=== PATIENT | male | born 1945 | race Two or more races ===

== ENCOUNTER 2019-05-10 01:36 | Inpatient (IN) | payer OTHER ==
[~2019-05-10] VITALS: Ht 177.8 cm; Wt 103.9 kg
--- NOTE | 2019-05-10 01:40 | NUR ---
PT BIB EMS C/O L HIP L THIGH PAIN S/P GLF. PT NOT KOREAN SPEAKING. NO KO PER FAMILY REPORT. DENIES DIZZINESS. PT HAS HAD GLF'S IN THE PAST. PT ON MONITOR IN BED 3 WITH FAMILY AT BEDSIDE. WILL CONTINUE TO MONITOR.
--- NOTE | 2019-05-10 01:56 | NUR ---
BLOOD DRAWN AND GIVEN TO LAB
[2019-05-10 02:04] LABS: CALCIUM, SERUM 9.8 mg/dL (8.5-10.1); CARBON DIOXIDE 30 mmol/L (21-32); CHLORIDE 106 mmol/L (98-107); CREATININE 1.6 mg/dL (0.6-1.3); GLUCOSE 102 mg/dL (74-106); POTASSIUM 4.3 mmol/L (3.5-5.1); SODIUM SERUM 140 mmol/L (136-145); UREA NITROGEN, BLOOD 28 mg/dL (7-18)
[2019-05-10] MEDS ORDERED: IV NS 0.9% 250 ML IV ONE (02:16)
[2019-05-10] MEDS ORDERED: IOHEXOL-300 100 ML VIAL IV ONE (02:16)
[2019-05-10] MEDS ORDERED: CT SWABBABLE VALVE TRANS SET 1 EA INFUS.SET MC ONE (02:16)
[2019-05-10] MEDS ORDERED: IV NS 0.9% 1,000 ML IV PRN (02:30)
[2019-05-10] MEDS ORDERED: MORPHINE SULFATE INJ 2 MG/ML DISP.SYRIN IV ONE (03:00)
--- NOTE | 2019-05-10 03:01 | NUR ---
PT TAKEN TO RADIOLOGY [facility]IA [facility]
--- NOTE | 2019-05-10 03:22 | NUR ---
PT [facility] [place] [facility]. PT TOLERATED WELL.
[2019-05-10] MEDS ORDERED: ONDANSETRON HCL/PF - ER 4 MG/2 ML VIAL IV ONE (03:30)
[2019-05-10] MEDS ORDERED: MORPHINE SULFATE INJ 4 MG/ML DISP.SYRIN ONE ×2 (03:34→05:21)
[2019-05-10] MEDS ORDERED: ONDANSETRON HCL/PF 4 MG/2 ML VIAL ONE (03:34)
--- NOTE | 2019-05-10 04:14 | NUR ---
Patient is resting comfortably in bed with eyes closed. Easily aroused. VSS. FAMILY AT BEDSIDE.
--- NOTE | 2019-05-10 04:56 | NUR ---
REPORT GIVEN TO CARA KAUFFMAN FOR DARLEEN
[2019-05-10] MEDS ORDERED: MORPHINE SULFATE INJ 4 MG/ML DISP.SYRIN IV PRN (05:30)
--- NOTE | 2019-05-10 05:42 | NUR ---
RECEIVED CALL FROM PATIENTS INSURANCE REQUESTING A MEDICAL REPORT. FAXED REPORT TO [phone]
--- NOTE | 2019-05-10 05:47 | NUR ---
MS ADMISSION NOTES RECEIVED PATIENT FROM ER VIA GURNEY ACCOMPANIED BY 1 ER STAFF. ADMITTED TO MS 308-1 DUE TO S/P FALL. TRANSFERRED TO BED WITH 4 PERSONS ASSIST. ADMISSION ROUTINE DONE. PATIENT'S BELONGINGS INVENTORY COMPLETED BY THE ASSIGNED SKIMMER SCOOP OPERATOR. INITIAL SKIN ASSESSMENT DONE. PAGED ATTENDING PHYSICIAN, AWAITING FOR ORDERS AT THIS TIME. KEPT ON BED CLEAN, DRY AND COMFORTABLE. CALL LIGHT AT BEDSIDE. WILL CONTINUE TO MONITOR ACCORDINGLY.
[2019-05-10 06:45] LABS: HEMATOCRIT 40 % (39-51); HEMOGLOBIN 13.6 g/dL (13.5-17.5); MEAN CORPUSCULAR HGB CONC 34 g/dl (31.0-36.0); MEAN CORPUSCULAR VOLUME 94 fL (80-96); NEUTROPHILS % (AUTO) 76.2 % (43.0-81.0); PLATELET COUNT (AUTO) 152 /CMM (150-450); RED BLOOD CELL COUNT(AUTO) 4.25 MIL/uL (4.5-6.0); WHITE BLOOD COUNT (AUTO) 9.1 K/uL (4.3-11.0)
[2019-05-10 06:46] LABS: BASOPHILS % (AUTO) 0.3 % (0.0-2.0); EOSINOPHILS % (AUTO) 0.5 % (0.0-6.0); LYMPHOCYTES # (AUTO) 1.6 /CMM (0.8-4.8); LYMPHOCYTES % (AUTO) 17.6 % (20.0-44.0); MONOCYTES # (AUTO) 0.5 /CMM (0.1-1.30); MONOCYTES % (AUTO) 5.4 % (2.0-12.0); NEUTROPHILS # (AUTO) 6.9 /CMM (1.8-8.9)
[2019-05-10] MEDS ORDERED: ONDANSETRON HCL/PF 4 MG/2 ML VIAL IVP PRN (07:00)
[2019-05-10] MEDS ORDERED: ACETAMINOPHEN 650 MG/SUPP.RECT RC PRN (07:00)
[2019-05-10] MEDS ORDERED: Z GUARD REMEDY 2 OZ OINT TP PRN (07:00)
[2019-05-10] MEDS ORDERED: IV D5/0.45 NACL 1,000 ML IV PRN (07:00)
--- NOTE | 2019-05-10 07:26 | NUR ---
RN NOTES PATIENT ON TELE PER MD ORDERED, READS SINUS WITH INTERTED T WAVE, SAFETY MEASURES IN PLACE, AT BEDSIDE BOTH UGANDAN SPEAKING, MAY CONTACT SON BENY, ENDORSE TO AM NURSE FOR CONTINUITY OF CARE.
--- NOTE | 2019-05-10 07:37 | NUR ---
MS RN OPENING NOTES RECEIVED PT LAYING IN BED W/ HOB ELEVATED. PT IS A/O X4, AFEBRILE. AT BEDSIDE. RESPIRATIONS ARE EVEN AND UNLABORED, NOT IN ANY ACUTE DISTRESS NOTED. PT STATES HE HAS "SMALL PAIN" TO LEFT HIP, HOWEVER NO FACIAL GRIMACING OR MOANING NOTED. NO SOB, N/V. IV SITE TO RAC 18G, NO INFILTRATION NOTED. DRESSING KEPT CLEAN AND DRY. SAFETY MEASURES ARE IN PLACE. INSTRUCTED PT TO USE CALL LIGHT WHEN ASSISTANCE IS NEEDED, CALL LIGHT IS LEFT WITHIN REACH. WILL MONITOR THROUGHOUT SHIFT FOR CONTINUITY OF CARE.
[2019-05-10 08:00] VITALS: BP 127/69
--- NOTE | 2019-05-10 08:00 | NUR ---
MS RN NOTES-- PT WAS SEEN AND EXAMINED BY DR. NEGRO W/ ORDERS TO D/C JAROD.
[2019-05-10] MEDS ORDERED: BLOOD PRESSURE PO (08:07)
[2019-05-10] MEDS ORDERED: ATOR20TA PO (08:07)
[2019-05-10] MEDS ORDERED: ZOLP5TAB2 PO (08:07)
[2019-05-10] MEDS ORDERED: ASPI-605 PO (08:07)
[2019-05-10 08:11] LABS: THYROID STIMULATING HORMONE 4.181 uIU/mL (0.358-3.74)
--- NOTE | 2019-05-10 08:30 | NUR ---
MS RN NOTES-- PT WAS SEEN AND EXAMINED BY ERASTO MORALEZ.
[2019-05-10] MEDS ORDERED: CLONIDINE HCL 0.1 MG TABLET PO PRN (09:00)
[2019-05-10 09:20] LABS: ALANINE AMINOTRANSFERASE 33 U/L (12-78); ALBUMIN 3.5 g/dL (3.4-5.0); ALKALINE PHOSPHATASE 119 U/L (46-116); ASPARTATE AMINOTRANSFERASE 27 U/L (15-37); BILIRUBIN,DIRECT 0.1 mg/dL (0.0-0.2); BILIRUBIN,TOTAL 0.7 mg/dL (0.2-1.0); TOTAL PROTEIN, SERUM 7.1 g/dL (6.4-8.2)
[2019-05-10] MEDS: PANTOPRAZOLE 40 MG VIAL IV SCH (09:28)
[2019-05-10] MEDS: AMLODIPINE BESYLATE 10 MG TABLET PO SCH (09:28)
[2019-05-10] MEDS: METOPROLOL TARTRATE 25 MG TABLET PO SCH ×2 (09:28→21:03)
[2019-05-10] MEDS: MORPHINE SULFATE INJ 2 MG/ML DISP.SYRIN IV PRN ×3 (09:37→19:48)
--- NOTE | 2019-05-10 10:00 | NUR ---
MS RN NOTES-- PT WAS SEEN AND EXAMINED BY LOLLY WINSLOW AND DR. WATT.
[2019-05-10] MEDS: IV NS 0.9% 1,000 ML IV PRN ×2 (10:15→18:29)
--- NOTE | 2019-05-10 12:10 | NUR ---
MS RN NOTES-- PT WAS SEEN AND EXAMINED BY DR. SONJA Graf/ NANDINI FOR CLEAR FOR SURGERY.
--- NOTE | 2019-05-10 12:23 | NUR ---
MS RN NOTES-- RECEIVED VERBAL ORDER FROM LOLLY WINSLOW FOR LEFT HIP XRAY 2 VIEWS. ORDER READ BACK AND VERIFIED, NOTED AND CARRIED OUT.
[2019-05-10 15:28] LABS: APPEARANCE,URINE CLEAR (CLEAR); BILIRUBIN,URINE NEGATIVE (NEGATIVE); BLOOD, URINE TRACE-INTA Ery/uL (NEGATIVE); COLOR,URINE YELLOW (YELLOW); KETONES,URINE NEGATIVE (NEGATIVE); LEUKOCYTE ESTERASE ,URINE NEGATIVE (NEGATIVE); NITRITE, URINE NEGATIVE (NEGATIVE); PH,URINE 6.5 (5.0-8.0); PROTEIN,URINE TRACE mg/dl (NEGATIVE); UGLUCOSE NEGATIVE (NEGATIVE); UROBILINOGEN,URINE 0.2 EU/dL (0.2)
[2019-05-10 15:38] LABS: BACTERIA,URINE Rare /HPF (None Seen); SQUAMOUS EPITHELIAL CELL,UR Rare /HPF (None Seen)
[2019-05-10 16:00] VITALS: BP 145/79
--- NOTE | 2019-05-10 18:25 | NUR ---
MS RN CLOSING NOTES ALL DUE MEDS GIVEN, NEEDS MET AND RENDERED. PT IS A/O X3, AFEBRILE. RESPIRATIONS ARE EVEN AND UNLABORED, NOT IN ANY ACUTE DISTRESS NOTED. PT DENIES ANY PAIN AT THIS TIME, NO C/O SOB, N/V. IV SITE TO RAC INTACT, NO INFILTRATION NOTED. DRESSING KEPT CLEAN AND DRY. AT BEDSIDE. SAFETY MEASURES ARE IN PLACE. REMINDED PT TO USE CALL LIGHT WHEN ASSISTANCE IS NEEDED, CALL LIGHT IS LEFT WITHIN REACH. WILL ENDORSE TO NEXT SHIFT FOR CONTINUITY OF CARE.
--- NOTE | 2019-05-10 18:25 | NUR ---
MS RN NOTES-- AT BEDSIDE. EXPLAINED PROCEDURE CONSENT. PER TO SPEAK TO SON BENY. PER SON BENY, "I WILL BE COMING AT 9PM TONIGHT AND I WILL SIGN THE CONSENT." WILL INFORM ASSISTANT COMMUNITY MANAGER NURSE.
--- NOTE | 2019-05-10 19:00 | NUR ---
MS RN OPENING NOTES PATIENT RECEIVED IN BED, ALERT, ORIENTED X 4. AT BEDSIDE. BREATHING EVEN AND UNLABORED. NOT IN ANY DISTRESS. PERIPHERAL IV INFUSING AT 125ML/HR. SAFETY MEASURES IN PLACE. CALL LIGHT WITHIN REACH, BED IN LOW, LOCKED POSITION. WILL CONTINUE TO MONITOR ACCORDINGLY
--- NOTE | 2019-05-10 19:49 | NUR ---
RN NOTES PATIENT C/O L HIP PAIN, 04/27. VS WNL. MORPHINE 2MG IV GIVEN ORDERED. WILL CONTINUE TO MONITOR
[2019-05-10 20:00] VITALS: BP 119/70
[2019-05-10 20:20] VITALS: BP 119/70
[2019-05-10] MEDS: ATORVASTATIN 10 MG TABLET PO SCH (21:03)
[2019-05-11] MEDS: MORPHINE SULFATE INJ 2 MG/ML DISP.SYRIN IV PRN ×3 (00:36→20:53)
--- NOTE | 2019-05-11 00:36 | NUR ---
RN NOTES PATIENT C/O L HIP PAIN, 04/27. VS WNL. MORPHINE 2MG IV GIVEN ORDERED. WILL CONTINUE TO MONITOR
[2019-05-11] MEDS: IV NS 0.9% 1,000 ML IV PRN (02:25)
--- NOTE | 2019-05-11 04:28 | NUR ---
RN NOTES PATIENT C/O L HIP PAIN, 03/28. VS WNL. MORPHINE 2MG IV GIVEN ORDERED. WILL CONTINUE TO MONITOR
[2019-05-11 06:38] LABS: BASOPHILS % (AUTO) 0.4 % (0.0-2.0); EOSINOPHILS % (AUTO) 1.8 % (0.0-6.0); HEMATOCRIT 38 % (39-51); HEMOGLOBIN 12.7 g/dL (13.5-17.5); LYMPHOCYTES # (AUTO) 1.2 /CMM (0.8-4.8); LYMPHOCYTES % (AUTO) 14.1 % (20.0-44.0); MEAN CORPUSCULAR HGB CONC 34 g/dl (31.0-36.0); MEAN CORPUSCULAR VOLUME 94 fL (80-96); MONOCYTES # (AUTO) 0.7 /CMM (0.1-1.30); MONOCYTES % (AUTO) 7.5 % (2.0-12.0); NEUTROPHILS # (AUTO) 6.8 /CMM (1.8-8.9); NEUTROPHILS % (AUTO) 76.2 % (43.0-81.0); PLATELET COUNT (AUTO) 134 /CMM (150-450); RED BLOOD CELL COUNT(AUTO) 3.99 MIL/uL (4.5-6.0); WHITE BLOOD COUNT (AUTO) 8.9 K/uL (4.3-11.0)
[2019-05-11 06:52] LABS: ALANINE AMINOTRANSFERASE 22 U/L (12-78); ALBUMIN 2.9 g/dL (3.4-5.0); ALKALINE PHOSPHATASE 91 U/L (46-116); ASPARTATE AMINOTRANSFERASE 19 U/L (15-37); CALCIUM, SERUM 8.8 mg/dL (8.5-10.1); CARBON DIOXIDE 22 mmol/L (21-32); CHLORIDE 107 mmol/L (98-107); CREATININE 1.3 mg/dL (0.6-1.3); GLUCOSE 90 mg/dL (74-106); MAGNESIUM 1.5 mg/dL (1.8-2.4); PHOSPHORUS 2.5 mg/dL (2.5-4.9); POTASSIUM 4.2 mmol/L (3.5-5.1); SODIUM SERUM 139 mmol/L (136-145); TOTAL PROTEIN, SERUM 6.5 g/dL (6.4-8.2); UREA NITROGEN, BLOOD 16 mg/dL (7-18)
[2019-05-11] MEDS ORDERED: FENTANYL PF 250MCG/5ML AMPUL ONE (06:57)
[2019-05-11] MEDS ORDERED: MIDAZOLAM HCL 2 MG/2ML VIAL ONE (06:57)
[2019-05-11] MEDS ORDERED: FENTANYL PF 100MCG/2ML AMPUL ONE ×2 (06:58)
[2019-05-11] MEDS ORDERED: ROCURONIUM BROMIDE 50 MG/5 ML ONE (06:59)
[2019-05-11] MEDS ORDERED: ANESTHESIA TRAY IN PYXIS 1 EA TRAY MC ONE ×2 (07:05→15:58)
--- NOTE | 2019-05-11 07:10 | NUR ---
MS RN CLOSING NOTES ALL DUE MEDS GIVEN, NEEDS MET AND RENDERED. PT IS A/O X3, AFEBRILE. RESPIRATIONS EVEN AND UNLABORED, NOT IN ANY ACUTE DISTRESS NOTED. PERIPHERAL IV INFUSING AT 125ML/HR. DRESSING KEPT CLEAN AND DRY. SAFETY MEASURES ARE IN PLACE. CALL LIGHT IS LEFT WITHIN REACH. ENDORSED CONTINUITY OF CARE TO AM RN
--- NOTE | 2019-05-11 07:20 | NUR ---
PATIENT PICKED UP BY OR STAFF FOR SURGERY
[2019-05-11] MEDS ORDERED: BUPIVACAINE 0.5 % PF 150 MG/30 ML VIAL ONE (07:39)
[2019-05-11] MEDS ORDERED: BACITRACIN 50000 UNITS/VIAL ONE (07:39)
[2019-05-11] MEDS: PANTOPRAZOLE 40 MG VIAL IV SCH (08:00)
[2019-05-11] MEDS: METOPROLOL TARTRATE 25 MG TABLET PO SCH ×2 (08:01→21:38)
[2019-05-11] MEDS: AMLODIPINE BESYLATE 10 MG TABLET PO SCH (08:01)
[2019-05-11] MEDS ORDERED: TRANEXAMIC ACID IR PRN (08:30)
[2019-05-11] MEDS: Magnesium 1GM/D5W 100ML PREMIX 100 ML IV SCH ×4 (08:30→14:29)
[2019-05-11] MEDS ORDERED: SODIUM CHLORIDE IRRIG IR PRN (08:30)
[2019-05-11] MEDS ORDERED: HYDROMORPHONE INJ 2 MG/ML DISP.SYRIN ONE (10:47)
[2019-05-11 11:01] LABS: BASOPHILS % (AUTO) 0.4 % (0.0-2.0); EOSINOPHILS % (AUTO) 0.7 % (0.0-6.0); HEMATOCRIT 35 % (39-51); HEMOGLOBIN 11.5 g/dL (13.5-17.5); LYMPHOCYTES # (AUTO) 1.7 /CMM (0.8-4.8); LYMPHOCYTES % (AUTO) 12.1 % (20.0-44.0); MEAN CORPUSCULAR HGB CONC 33 g/dl (31.0-36.0); MEAN CORPUSCULAR VOLUME 96 fL (80-96); MONOCYTES # (AUTO) 0.9 /CMM (0.1-1.30); MONOCYTES % (AUTO) 6.9 % (2.0-12.0); NEUTROPHILS # (AUTO) 10.9 /CMM (1.8-8.9); NEUTROPHILS % (AUTO) 79.9 % (43.0-81.0); PLATELET COUNT (AUTO) 138 /CMM (150-450); RED BLOOD CELL COUNT(AUTO) 3.63 MIL/uL (4.5-6.0); WHITE BLOOD COUNT (AUTO) 13.7 K/uL (4.3-11.0)
[2019-05-11 11:11] LABS: CALCIUM, SERUM 8.4 mg/dL (8.5-10.1); CARBON DIOXIDE 23 mmol/L (21-32); CHLORIDE 108 mmol/L (98-107); CREATININE 1.5 mg/dL (0.6-1.3); GLUCOSE 118 mg/dL (74-106); POTASSIUM 4.4 mmol/L (3.5-5.1); SODIUM SERUM 140 mmol/L (136-145); UREA NITROGEN, BLOOD 18 mg/dL (7-18)
[2019-05-11] MEDS ORDERED: IV LR 1000 ML 1,000 ML IV PRN (11:30)
--- NOTE | 2019-05-11 11:51 | NUR ---
RECEIVED PATIENT FROM OR; EASILY AROUSES TO NAME. VS ARE STABLE , ON 2L O2 VIA NC SATURATING 97%. SURGICAL INCISION ON THE LEFT HIP INTACT AND DRY. f/c IN PLACE. POST OP ORDERS NOTED. WILL CONTINUE TO MONITOR
--- NOTE | 2019-05-11 12:30 | NUR ---
PATIENT TOLERATED FULL LIQUID DIET WELL. DENIES PAIN AT THIS TIME
--- NOTE | 2019-05-11 13:00 | NUR ---
PATIENT EDUCATED HOW TO USE SPIROMETER AND ENCOURAGED TO USE IT Q1H . Addendum: 05/11/19 at 1631 by SHALA MICHAEL RN PATIENT VERBALIZED UNDERSTANDING
[2019-05-11 16:00] VITALS: BP 86/62
[2019-05-11] MEDS: CEFAZOLIN 2 GM in IV D5W 100 ML IV SCH (16:18)
--- NOTE | 2019-05-11 18:33 | NUR ---
Patient resting in bed, at bedside. Patient A/O x3 , speaks Macedonian only. Patient denies pain. Pain was assessed throughout the shift. IV remain intact and patent, flushing well. F/C output 250 ml. Patient tolerated regular diet well. All needs attended. Left hip dressing intact and dry. Will endorse to next shift
--- NOTE | 2019-05-11 19:23 | NUR ---
MS RN RECEIVE PT IN BED,A/O X 1, S/P TOTAL HIP REPLACEMENT, RESPIRATIONS EVEN AND UNLABORED, STABLE AND NOT IN DISTRESS, SAFETY MEASURES AT ALL TIMES. WILL CONTINUE TO MTR
[2019-05-11 20:00] VITALS: BP_SYST 152; BP_SYST 157; BP_DIAS 64
[2019-05-11] MEDS: ATORVASTATIN 10 MG TABLET PO SCH (21:33)
--- NOTE | 2019-05-11 22:30 | NUR ---
PT WANTS TO REMOVE HIS PEREZ CATHETER CALLED SON SPOKE TO KATIE AND REQUESTED TO REMOVED PEREZ CATHETER PT UNCOMFORTABLE WITH IT
[2019-05-11] MEDS: HYDROCODONE/APAP 5/325MG 1 EACH TABLET PO PRN (22:46)
--- NOTE | 2019-05-11 23:21 | NUR ---
HOSPITALIST AT THE FLOOR RELAYED DR. OROURKE PT RESTLESS AND UNCOMFORTABLE WITH PEREZ CATHETER WANTED TO REMOVE. PER DR. GUO OK TO REMOVE PEREZ CATHETER AT THIS TIME READ BACK AND VERIFIED NOTED AND CARRIED OUT
--- NOTE | 2019-05-11 23:21 | NUR ---
PT RESTLESS PAGED AND CALLED HOSPITALIST SPOKE TO DR. BRANT OROURKE PER BRANT ORDERED ATIVAN 1 MG PO Q4HR FOR ANXIETY READ BACK AND VERIFIED ORDERS NOTED AND CARRIED OUT
--- NOTE | 2019-05-11 23:22 | NUR ---
REMOVED PEREZ CATHETER TOLERATED PROCEDURE WELL TIP INTACT WILL CONT TO MTR
[2019-05-11] MEDS: LORAZEPAM 1 MG TABLET PO PRN (23:46)
[2019-05-12] VITALS: BP 132/77
[2019-05-12] MEDS: CEFAZOLIN 2 GM in IV D5W 100 ML IV SCH (00:57)
[2019-05-12] MEDS: MORPHINE SULFATE INJ 2 MG/ML DISP.SYRIN IV PRN (03:49)
[2019-05-12 04:00] VITALS: BP 144/71
--- NOTE | 2019-05-12 06:09 | NUR ---
MS CARA ASLEEP AND EASILY AWAKEN, S/P LEFT HIP TOTAL ARTHROPLASTY DRESSING INTACT CLEAN AND NO S/S OF BLEEDING. AM CARE RENDERED. NO S/S OF DISTRESS, MONITORED FOR PAIN MEDICATED WITH PRN PAIN MED WITH RELIEF. ASSISTED REPOSITION EVERY 2 HOURS. NURSING CARE RENDERED, KEPT CLEAN AND DRY AND COMFORTABLE. NEEDS ATTENDED AND ANTICIPATED. INSTRUCTED TO PERFORM INCENTIVE SPIROMETER WHILE AWAKE ORDERED. SAFETY MEASURES AT ALL TIMES. ENDORSE TO THE NEXT SHIFT. Addendum: 05/12/19 at 0647 by DONN GERMAIN RN NO BLADDER RETENTION ABLE TO URINATE FREELY USES URINAL PT A/O X 2 NEEDS FREQUENT RE ORIENTATION
[2019-05-12 06:31] LABS: BASOPHILS % (AUTO) 0.1 % (0.0-2.0); EOSINOPHILS % (AUTO) 0.1 % (0.0-6.0); HEMATOCRIT 30 % (39-51); HEMOGLOBIN 10.2 g/dL (13.5-17.5); LYMPHOCYTES # (AUTO) 1.2 /CMM (0.8-4.8); LYMPHOCYTES % (AUTO) 9.2 % (20.0-44.0); MEAN CORPUSCULAR HGB CONC 34 g/dl (31.0-36.0); MEAN CORPUSCULAR VOLUME 95 fL (80-96); MONOCYTES % (AUTO) 7.7 % (2.0-12.0); NEUTROPHILS # (AUTO) 10.4 /CMM (1.8-8.9); NEUTROPHILS % (AUTO) 82.9 % (43.0-81.0); PLATELET COUNT (AUTO) 117 /CMM (150-450); RED BLOOD CELL COUNT(AUTO) 3.19 MIL/uL (4.5-6.0); WHITE BLOOD COUNT (AUTO) 12.5 K/uL (4.3-11.0)
[2019-05-12 06:50] LABS: CALCIUM, SERUM 8.5 mg/dL (8.5-10.1); CARBON DIOXIDE 24 mmol/L (21-32); CHLORIDE 105 mmol/L (98-107); CREATININE 1.6 mg/dL (0.6-1.3); GLUCOSE 119 mg/dL (74-106); MAGNESIUM 1.9 mg/dL (1.8-2.4); PHOSPHORUS 2.5 mg/dL (2.5-4.9); POTASSIUM 4.1 mmol/L (3.5-5.1); SODIUM SERUM 138 mmol/L (136-145); UREA NITROGEN, BLOOD 22 mg/dL (7-18)
--- NOTE | 2019-05-12 07:30 | NUR ---
MS RN OPENING NOTES RECEIVED PATIENT IN BED RESTING COMFORTABLY IN MODERATE HIGH BACK REST. A/O X1. S/P LEFT HIP TOTAL ARTHROPLASTY DRESSING INTACT AND NO S/S OF BLEEDING. NO S/S OF DISTRESS NOTED AT THIS TIME. ON IV FLUIDS ON RAC# 18 WITH LR RUNNING @ 75ML/HR. PATENT AND INTACT. SAFETY MEASURES IN PLACE, BED IN LOW LOCKED POSITION WITH SIDE RAILS UP X2. CALL LIGHT WITHIN REACH. WILL CONTINUE TO MONITOR.
[2019-05-12 08:00] VITALS: BP 97/56
[2019-05-12] MEDS: AMLODIPINE BESYLATE 10 MG TABLET PO SCH (08:44)
[2019-05-12] MEDS: PANTOPRAZOLE 40 MG VIAL IV SCH (08:46)
[2019-05-12] MEDS: ENOXAPARIN SODIUM 40 MG/0.4 ML DISP.SYRIN SQ SCH (08:46)
[2019-05-12] MEDS: METOPROLOL TARTRATE 25 MG TABLET PO SCH ×2 (09:00→21:24)
--- NOTE | 2019-05-12 14:15 | NUR ---
RN NOTES PATIENT PULLED OUT HIS IV, TRIED TO RE-INSERT BUT PATIENT REFUSED. FAMILY ON BEDSIDE AND THEY REQUESTED IF IV ACCESS CAN BE DISCONTINUED. INFORMED ERASTO ELIZONDO. AND ORDERED TO DC IV. WILL CONTINUE TO MONITOR.
[2019-05-12 16:00] VITALS: BP 115/64
--- NOTE | 2019-05-12 18:41 | NUR ---
MS RN CLOSING NOTES PATIENT IN BED RESTING COMFORTABLY IN MODERATE HIGH BACK REST. A/O X1. ON RA, TOLERATING WELL. NO S/S OF DISTRESS NOTED THROUGHOUT THE SHIFT. ALL NURSING CARE PROVIDED. SAFETY MEASURES IN PLACE, BED IN LOW LOCKED POSITION WITH SIDE RAILS UP X2. CALL LIGHT WITHIN REACH. WILL CONTINUE TO MONITOR. WILL ENDORSE TO HOSPITALITY INTERNSHIP NURSE FOR DARLEEN.
--- NOTE | 2019-05-12 19:23 | NUR ---
MS RN RECEIVE PT IN BED,A/O X 1-2, PT S/P TOTAL HIP ARTHROPLASTY DRESSING INTACT, NWB LLE, STABLE AND NOT IN DISTRESS, SAFETY MEASURES AT ALL TIMES. WILL CONTINUE TO MTR
[2019-05-12 20:00] VITALS: BP 130/67
[2019-05-12] MEDS: ATORVASTATIN 10 MG TABLET PO SCH (21:24)
[2019-05-12] MEDS: HYDROCODONE/APAP 5/325MG 1 EACH TABLET PO PRN (21:25)
[2019-05-13] MEDS: LORAZEPAM 1 MG TABLET PO PRN (02:02)
--- NOTE | 2019-05-13 03:00 | NUR ---
MS RN PT CALM AND SLEEPING AT THIS TIME. WILL CONT TO MTR
--- NOTE | 2019-05-13 06:14 | NUR ---
MS RN NO SIGNIFICANT CHANGES THROUGHOUT THE SHIFT, OFFLOAD HEELS AND ELBOWS AT ALL TIMES. REPOSITION EVERY 2 HOURS. MONITORED FOR PAIN. MEDICATED WITH PRN PAIN MED WITH RELIEF S/P LEFT HIP TOTAL ARTHROPLASTY DRESSING INTACT, DRY, NO S/S OF BLEEDING. NURSING CARE RENDERED, KEPT CLEAN AND DRY AND COMFORTABLE. NEEDS ATTENDED AND ANTICIPATED. INSTRUCTED TO PERFORM INCENTIVE SPIROMETER WHILE AWAKE ORDERED. SAFETY MEASURES AT ALL TIMES. ENDORSE TO THE NEXT SHIFT. Addendum: 05/13/19 at 0637 by DONN GERMAIN RN ABDUCTOR PILLOW IN PLACE AT ALL TIMES
[2019-05-13 06:53] LABS: BASOPHILS % (AUTO) 0.2 % (0.0-2.0); EOSINOPHILS % (AUTO) 0.4 % (0.0-6.0); HEMATOCRIT 29 % (39-51); HEMOGLOBIN 9.8 g/dL (13.5-17.5); LYMPHOCYTES # (AUTO) 1.2 /CMM (0.8-4.8); LYMPHOCYTES % (AUTO) 10.1 % (20.0-44.0); MEAN CORPUSCULAR HGB CONC 33 g/dl (31.0-36.0); MEAN CORPUSCULAR VOLUME 95 fL (80-96); MONOCYTES # (AUTO) 0.9 /CMM (0.1-1.30); NEUTROPHILS # (AUTO) 9.4 /CMM (1.8-8.9); NEUTROPHILS % (AUTO) 81.3 % (43.0-81.0); PLATELET COUNT (AUTO) 126 /CMM (150-450); RED BLOOD CELL COUNT(AUTO) 3.11 MIL/uL (4.5-6.0); WHITE BLOOD COUNT (AUTO) 11.6 K/uL (4.3-11.0)
[2019-05-13 07:03] LABS: CALCIUM, SERUM 9.5 mg/dL (8.5-10.1); CARBON DIOXIDE 25 mmol/L (21-32); CHLORIDE 106 mmol/L (98-107); CREATININE 1.5 mg/dL (0.6-1.3); GLUCOSE 102 mg/dL (74-106); POTASSIUM 4.3 mmol/L (3.5-5.1); SODIUM SERUM 139 mmol/L (136-145); UREA NITROGEN, BLOOD 22 mg/dL (7-18)
[2019-05-13 08:00] VITALS: BP 131/70
--- NOTE | 2019-05-13 08:00 | NUR ---
MS RN OPENING NOTES Received Patient awake and resting in bed. A/O x 1-2, Chinese speaking. VS stable with no acute distress. Breathing even and unlabored on room air with no respiratory distress. No signs and symptoms of pain. No IV access, Derrek VOICE OVER ARTIST aware. Safety precautions in place. Bed locked and set to lowest position with side rails x 2. Call light within reach. Will continue to monitor.
--- NOTE | 2019-05-13 08:46 | NUR ---
MS RN NOTES Per Derrek PATIENT REGISTRAR, may change Protonix 40mg IVP to PO. Patient has no IV access noted. PATIENT REGISTRAR aware. Order noted and carried out. Will continue to monitor.
[2019-05-13] MEDS: ENOXAPARIN SODIUM 40 MG/0.4 ML DISP.SYRIN SQ SCH (09:39)
[2019-05-13] MEDS: METOPROLOL TARTRATE 25 MG TABLET PO SCH ×2 (09:40→21:05)
[2019-05-13] MEDS: AMLODIPINE BESYLATE 10 MG TABLET PO SCH (09:40)
[2019-05-13] MEDS: PANTOPRAZOLE 40 MG TABLET.DR PO SCH (09:41)
[2019-05-13 16:00] VITALS: BP 122/58
--- NOTE | 2019-05-13 18:47 | NUR ---
MS RN CLOSING NOTES Patient awake and resting in bed. A/O x 2, Telugu speaking. VS stable with no acute distress. Breathing even and unlabored on room air with no respiratory distress. Denies pain. No signs and symptoms of pain. Left hip surgical incision wound dressing clean, dry and intact. No IV access, Derrek SOLUTIONS CONSULTANT aware. Safety precautions in place. Bed locked and set to lowest position with side rails x 2 up. All needs rendered at this time. Call light within reach. Will endorse plan of care to oncoming shift.
--- NOTE | 2019-05-13 19:20 | NUR ---
MS RN PM OPENING NOTE Bedside report recieved from Amy abreu. Patient awake and resting in bed. per report patient is A/O x 2, Croatian speaking. patient in no apparent acute distress. Breathing even and unlabored on room air with no respiratory distress. Patient denies pain. Left hip surgical incision wound dressing clean, dry and intact. No IV access, per report Derrek CALL CENTER CONSULTANT aware. Safety precautions in place. Bed locked and set to lowest position with side rails x 2 up. Call light within reach.bed alarm active will cont to monitor.
[2019-05-13 20:00] VITALS: BP 119/63
[2019-05-13] MEDS: ATORVASTATIN 10 MG TABLET PO SCH (21:05)
[2019-05-14 06:21] LABS: BASOPHILS % (AUTO) 0.1 % (0.0-2.0); EOSINOPHILS % (AUTO) 1.2 % (0.0-6.0); HEMATOCRIT 24 % (39-51); HEMOGLOBIN 8.1 g/dL (13.5-17.5); LYMPHOCYTES # (AUTO) 1.6 /CMM (0.8-4.8); LYMPHOCYTES % (AUTO) 15.3 % (20.0-44.0); MEAN CORPUSCULAR HGB CONC 34 g/dl (31.0-36.0); MEAN CORPUSCULAR VOLUME 95 fL (80-96); MONOCYTES # (AUTO) 0.9 /CMM (0.1-1.30); NEUTROPHILS # (AUTO) 7.7 /CMM (1.8-8.9); NEUTROPHILS % (AUTO) 74.4 % (43.0-81.0); PLATELET COUNT (AUTO) 127 /CMM (150-450); RED BLOOD CELL COUNT(AUTO) 2.52 MIL/uL (4.5-6.0); WHITE BLOOD COUNT (AUTO) 10.4 K/uL (4.3-11.0)
[2019-05-14 06:49] LABS: CALCIUM, SERUM 8.9 mg/dL (8.5-10.1); CARBON DIOXIDE 25 mmol/L (21-32); CHLORIDE 107 mmol/L (98-107); CREATININE 1.5 mg/dL (0.6-1.3); GLUCOSE 107 mg/dL (74-106); SODIUM SERUM 139 mmol/L (136-145); UREA NITROGEN, BLOOD 25 mg/dL (7-18)
[2019-05-14] MEDS: IV NS 0.9% 1,000 ML IV PRN ×2 (06:51→18:01)
--- NOTE | 2019-05-14 07:00 | NUR ---
MS RN CLOSING NOTES PATIENT IN BED RESTING COMFORTABLY IN SEMI FOWLERS POSITION. A/O X3. ON RA, TOLERATING WELL. NO S/S OF DISTRESS NOTED THROUGHOUT THE SHIFT. IV STARTED TO RIGHT HAND PATIENT AGREEABLE TO PROCEDURE. NS STARTED AT 100 ML/HR. SAFETY MEASURES IN PLACE, BED IN LOW LOCKED POSITION WITH SIDE RAILS UP X2. CALL LIGHT WITHIN REACH.
--- NOTE | 2019-05-14 07:25 | NUR ---
MS RN OPENING NOTES RECEIVED PATIENT RESTING IN BED RESTING COMFORTABLY IN MODERATE HIGH BACK REST WITH NO SIGNS OF DISTRESS NOTED AT THIS TIME. A/O X3. SYRIAC SPEAKING. IV FLUIDS ON RIGHT HAND #22 WITH NS RUNNING @ 100ML/HR. INTACT AND PATENT. SAFETY MEASURES IN PLACE, BED IN LOW LOCKED POSITION WITH SIDE RAILS UP X2. CALL LIGHT WITHIN REACH. WILL CONTINUE TO MONITOR.
[2019-05-14 08:00] VITALS: BP 115/55
[2019-05-14] MEDS: ENOXAPARIN SODIUM 40 MG/0.4 ML DISP.SYRIN SQ SCH (08:21)
[2019-05-14] MEDS: METOPROLOL TARTRATE 25 MG TABLET PO SCH ×2 (08:25→20:33)
[2019-05-14] MEDS: AMLODIPINE BESYLATE 10 MG TABLET PO SCH (08:26)
[2019-05-14] MEDS: PANTOPRAZOLE 40 MG TABLET.DR PO SCH (08:26)
[2019-05-14 16:00] VITALS: BP 126/71
--- NOTE | 2019-05-14 18:36 | NUR ---
MS RN CLOSING NOTES PATIENT IN BED RESTING COMFORTABLY IN MODERATE HIGH BACK REST WITH NO SIGNS OF DISTRESS NOTED THROUGHOUT THE SHIFT. A/O X3. HUNGARIAN SPEAKING. AT BEDSIDE. IV FLUIDS ON RIGHT HAND #22 WITH NS RUNNING @ 100ML/HR. INTACT AND PATENT. SAFETY MEASURES IN PLACE, BED IN LOW LOCKED POSITION WITH SIDE RAILS UP X2. CALL LIGHT WITHIN REACH. WILL ENDORSE TO PATCH PRESS OPERATOR NURSE FOR DARLEEN.
--- NOTE | 2019-05-14 19:10 | NUR ---
MS RN PM OPENING NOTES BEDSIDE REPORT RECIEVED FROM NAHID MARROQUIN. PATIENT IN BED RESTING COMFORTABLY IN SEMIFOWLERS POSITION. A/O X3. ENGLISH SPEAKING. AT BEDSIDE. POC REVEWED WITH SON WHOM SPEAKS SERBIAN OVER THE PHONE. IV FLUIDS ON RIGHT HAND #22 WITH NS RUNNING @ 100ML/HR. INTACT AND PATENT. SAFETY MEASURES IN PLACE, BED IN LOW LOCKED POSITION WITH SIDE RAILS UP X2. CALL LIGHT WITHIN REACH. WILL CONTINUE TO MONITOR.
[2019-05-14 20:02] VITALS: BP 127/71
[2019-05-14] MEDS: ATORVASTATIN 10 MG TABLET PO SCH (20:32)
[2019-05-14] MEDS: LORAZEPAM 1 MG TABLET PO PRN (20:36)
--- NOTE | 2019-05-14 20:36 | NUR ---
PATIENT REQUESTING ATIVAN TO HELP WITH SLEEP ATIVAN ADMINISTRED PRN ORDERED.
[2019-05-15] MEDS: IV NS 0.9% 1,000 ML IV PRN ×2 (05:13→16:31)
[2019-05-15 06:17] LABS: BASOPHILS % (AUTO) 0.5 % (0.0-2.0); EOSINOPHILS % (AUTO) 2.3 % (0.0-6.0); HEMATOCRIT 24 % (39-51); HEMOGLOBIN 8.2 g/dL (13.5-17.5); LYMPHOCYTES # (AUTO) 1.3 /CMM (0.8-4.8); LYMPHOCYTES % (AUTO) 16.8 % (20.0-44.0); MEAN CORPUSCULAR HGB CONC 34 g/dl (31.0-36.0); MEAN CORPUSCULAR VOLUME 95 fL (80-96); MONOCYTES # (AUTO) 0.7 /CMM (0.1-1.30); MONOCYTES % (AUTO) 9.2 % (2.0-12.0); NEUTROPHILS # (AUTO) 5.5 /CMM (1.8-8.9); NEUTROPHILS % (AUTO) 71.2 % (43.0-81.0); PLATELET COUNT (AUTO) 151 /CMM (150-450); RED BLOOD CELL COUNT(AUTO) 2.58 MIL/uL (4.5-6.0); WHITE BLOOD COUNT (AUTO) 7.8 K/uL (4.3-11.0)
[2019-05-15 06:40] LABS: CALCIUM, SERUM 9.1 mg/dL (8.5-10.1); CREATININE 1.3 mg/dL (0.6-1.3); POTASSIUM 3.7 mmol/L (3.5-5.1)
--- NOTE | 2019-05-15 06:45 | NUR ---
MS RN PM CLOSING NOTES PATIENT IN BED RESTING IN SEMIFOWLERS POSITION SEEN WITH EYES CLOSED IN NO APPARENT DISTRESS. IV FLUIDS ON RIGHT HAND #22 WITH NS RUNNING @ 100ML/HR. INTACT AND PATENT. SAFETY MEASURES IN PLACE, BED IN LOW LOCKED POSITION WITH SIDE RAILS UP X2. CALL LIGHT WITHIN REACH. WILL CONTINUE TO MONITOR.
--- NOTE | 2019-05-15 07:51 | NUR ---
MS RN OPENING NOTES RECEIVED PT LAYING IN BED WITH HOB ELEVATED. PT IS A/O X3, AFEBRILE. RESPIRATIONS ARE EVEN AND UNLABORED, NOT IN ANY ACUTE DISTRESS NOTED. NO FACIAL GRIMACING OR MOANING. IV SITE TO RIGHT HAND INTACT, NO INFILTRATION NOTED. DRESSING KEPT CLEAN AND DRY. SAFETY MEASURES ARE IN PLACE. INSTRUCTED PT TO USE CALL LIGHT WHEN ASSISTANCE IS NEEDED, CALL LIGHT IS LEFT WITHIN REACH. WILL MONITOR THROUGHOUT SHIFT FOR CONTINUITY OF CARE.
[2019-05-15 08:00] VITALS: BP 141/86
[2019-05-15] MEDS: PANTOPRAZOLE 40 MG TABLET.DR PO SCH (08:53)
[2019-05-15] MEDS: AMLODIPINE BESYLATE 10 MG TABLET PO SCH (08:53)
[2019-05-15] MEDS: METOPROLOL TARTRATE 25 MG TABLET PO SCH ×2 (08:55→22:14)
[2019-05-15] MEDS: ENOXAPARIN SODIUM 40 MG/0.4 ML DISP.SYRIN SQ SCH (08:57)
[2019-05-15] MEDS ORDERED: BISACODYL (5 MG) 5 MG TABLET.DR PO ONE (11:50)
--- NOTE | 2019-05-15 11:51 | NUR ---
MS RN NOTES-- INFORMED NAOMY AUTOMOTIVE ELECTRICAL FITTER THAT PT HAS NOT HAD A BM X5 DAYS. RECEIVED VERBAL ORDERS FOR COLACE 100MG PO BID AND DULCOLAX 10MG PO X1. ORDERS READ BACK AND VERIFIED, NOTED AND CARRIED OUT. WILL CONTINUE TO MONITOR.
--- NOTE | 2019-05-15 13:00 | NUR ---
MS RN NOTES-- PT WAS SEEN AND EXAMINED BY LOLLY WINSLOW. PER GOLDY, PERLA WILL CLEAR PATIENT TO GO HOME AND FOR HOSPITALIST TO PRESCRIBE LOVENOX. NOTIFIED ERASTO MORALEZ.
[2019-05-15 16:00] VITALS: BP 119/68
[2019-05-15] MEDS: DOCUSATE SODIUM 100 MG CAPSULE PO SCH (16:08)
--- NOTE | 2019-05-15 18:28 | NUR ---
MS RN CLOSING NOTES ALL DUE MEDS GIVEN, NEEDS MET AND RENDERED. PT IS A/O X3, AFEBRILE. RESPIRATIONS ARE EVEN AND UNLABORED, NOT IN ANY ACUTE DISTRESS NOTED. PT DENIES ANY PAIN AT THIS TIME, NO C/O SOB, N/V. IV SITE TO RIGHT HAND INTACT, NO INFILTRATION NOTED. DRESSING KEPT CLEAN AND DRY. AT BEDSIDE. SAFETY MEASURES ARE IN PLACE. REMINDED PT TO USE CALL LIGHT WHEN ASSISTANCE IS NEEDED, CALL LIGHT IS LEFT WITHIN REACH. WILL ENDORSE TO NEXT SHIFT FOR CONTINUITY OF CARE.
--- NOTE | 2019-05-15 19:30 | NUR ---
MS RN OPENING NOTE RECEIVED PATIENT IN BED. A/O X2-3. PATIENT IS KHMER SPEAKING, ABLE TO MAKE NEEDS KNOWN. RESPIRATIONS ARE EVEN AND UNLABORED. NO SOB NOTED. DENIES PAIN AT THIS TIME. IV ACCESS IN RIGHT HAND #22. IN NO APPARENT DISTRESS. BED IS LOW AND LOCKED, HOB ELEVATED 30 DEGREES, SIDE RAILS UP X3, BED ALARM ON. CALL LIGHT WITHIN REACH. WILL CONTINUE TO MONITOR.
--- NOTE | 2019-05-15 19:50 | NUR ---
MS RN NOTE ADMINISTERED PRN ATIVAN 1MG PER PATIENTS REQUEST. WILL CONTINUE TO MONITOR.
[2019-05-15] MEDS: LORAZEPAM 1 MG TABLET PO PRN (19:51)
[2019-05-15 20:00] VITALS: BP 120/65
--- NOTE | 2019-05-15 21:25 | NUR ---
MS RN NOTE PATIENT PULLED OUT IV FROM RIGHT HAND. INFORMED HIM WE WILL NEED TO PLACE A NEW IV SHORTLY.
[2019-05-15] MEDS: ATORVASTATIN 10 MG TABLET PO SCH (22:10)
--- NOTE | 2019-05-15 22:50 | NUR ---
MS RN NOTE PLACED AN IV ON RIGHT AC #18.
--- NOTE | 2019-05-16 00:30 | NUR ---
MS RN NOTE PATIENT PULLOUT OUT RAC#18. INFORMED CHARGE NURSE
--- NOTE | 2019-05-16 00:50 | NUR ---
MS RN NOTE CALLED PATIENTS SON D/T PATIENT BECOMING COMBATIVE AND WANTING TO GET OUT OF BED. SON ON HIS WAY.
[2019-05-16] MEDS: LORAZEPAM 1 MG TABLET PO PRN (01:07)
--- NOTE | 2019-05-16 01:20 | NUR ---
MS RN NOTE SON STATES THE FATHER WAS CONFUSED AND HAVING A HARD TIME D/T LANGUAGE BARRIER (DANISH). I ASKED SON TO ASK FATHER IS HE WAS IN PAIN, FATHER SAID NO. ASKED SON TO STAY UNTIL FATHER WENT TO SLEEP. WILL CONTINUE TO MONITOR.
--- NOTE | 2019-05-16 01:50 | NUR ---
MS RN NOTE PATIENT WAS FOUND ON THE FLOOR, FALL WAS NOT WITNESSED. ASSISTED PATIENT TO BED. CHARGE NURSE, NURSING SUP. GLENN, AND 2 OTHER RNS ASSISTED. MADE PATIENT COMFORTABLE IN BED. ASKED IF HE HAS PAIN IN LEFT LEG, PATIENT STATES NO. CHECKED PEDAL PULSE ON LEFT LEFT, PULSE IS STRONG AND REGULAR. BED IS LOW AND LOCKED, SIDE RAILS UP X3, HOB FLAT, BED ALARM ON. WILL NOTIFY MD. WILL CONTINUE TO MONITOR.
--- NOTE | 2019-05-16 02:00 | NUR ---
MS RN NOTE CALLED DR. GONZALEZ. AWAITING HIS CALL.
--- NOTE | 2019-05-16 02:10 | NUR ---
MS RN NOTE RECEIVED CALL FROM DR. GONZALEZ, NO NEW ORDERS AT THIS TIME, JUST CONTINUE TO MONITOR. ORDER NOTED, DOCUMENTED AND CARRIED OUT. WILL CONTINUE TO MONITOR.
[2019-05-16 06:26] LABS: BASOPHILS % (AUTO) 0.3 % (0.0-2.0); EOSINOPHILS % (AUTO) 2.1 % (0.0-6.0); HEMATOCRIT 24 % (39-51); HEMOGLOBIN 8.1 g/dL (13.5-17.5); LYMPHOCYTES # (AUTO) 1.3 /CMM (0.8-4.8); LYMPHOCYTES % (AUTO) 16.7 % (20.0-44.0); MEAN CORPUSCULAR HGB CONC 34 g/dl (31.0-36.0); MEAN CORPUSCULAR VOLUME 95 fL (80-96); MONOCYTES # (AUTO) 0.8 /CMM (0.1-1.30); MONOCYTES % (AUTO) 10.4 % (2.0-12.0); NEUTROPHILS # (AUTO) 5.4 /CMM (1.8-8.9); NEUTROPHILS % (AUTO) 70.5 % (43.0-81.0); PLATELET COUNT (AUTO) 174 /CMM (150-450); RED BLOOD CELL COUNT(AUTO) 2.53 MIL/uL (4.5-6.0); WHITE BLOOD COUNT (AUTO) 7.6 K/uL (4.3-11.0)
--- NOTE | 2019-05-16 06:32 | NUR ---
MS CARA CLOSING NOTE PATIENT IN BED. A/O X2-3. CROATIAN SPEAKING, ABLE TO MAKE NEEDS KNOWN. RESPIRATIONS REMAIN EVEN AND UNLABORED. NO SOB NOTED. NO C/O PAIN. IV ACCESS MAINTAINED IN RIGHT HAND #22. NO DISTRESS NOTED. BED REMAINS LOW AND LOCKED, HOB ELEVATED 30 DEGREES, SIDE RAILS UP X3, BED ALARM ON. CALL LIGHT WITHIN REACH. WILL ENDORSE TO NEXT SHIFT Addendum: 05/16/19 at 0637 by SHAWN ORTEGA RN NO CURRENT IV SITE. WILL INSERT ONE NOW.
[2019-05-16 06:51] LABS: CALCIUM, SERUM 9.3 mg/dL (8.5-10.1); CREATININE 1.1 mg/dL (0.6-1.3); POTASSIUM 3.7 mmol/L (3.5-5.1)
--- NOTE | 2019-05-16 07:29 | NUR ---
MS RN NOTE ENDORSE TO DAY SHIFT THAT THE PATIENT DOES NOT HAVE AN IV. CALLED SON AND INFORMED HIM OF FALL.
[2019-05-16 08:00] VITALS: BP 118/56
--- NOTE | 2019-05-16 08:10 | NUR ---
ms rn received on bed, awake,alert,oriented x3, not in any form of distress, respirations even and unlabored,no sob noted noted, lungs are clear, abdomen soft,positive bowel sounds,s/p left hip surgery w/ dressing dry and intact, denies pain at this time,all needs attended.
--- NOTE | 2019-05-16 09:00 | NUR ---
ms rn breakfast served, due meds given by students,all needs attended.
[2019-05-16] MEDS: METOPROLOL TARTRATE 25 MG TABLET PO SCH (09:16)
[2019-05-16 09:18] VITALS: BP 133/73
[2019-05-16] MEDS: AMLODIPINE BESYLATE 10 MG TABLET PO SCH (09:18)
[2019-05-16] MEDS: DOCUSATE SODIUM 100 MG CAPSULE PO SCH (09:18)
[2019-05-16] MEDS: ENOXAPARIN SODIUM 40 MG/0.4 ML DISP.SYRIN SQ SCH (09:21)
--- NOTE | 2019-05-16 11:00 | NUR ---
ms rn was seen by dr. susan brown/ order to go home today,family is aware.
[2019-05-16] MEDS: PANTOPRAZOLE 40 MG TABLET.DR PO SCH (11:34)
[2019-05-16] MEDS ORDERED: NA PHOS,M-B/NA PHOS,DI-BA 1 EA ENEMA RC ONE (13:00)
[2019-05-16] MEDS: HYDROCODONE/APAP 5/325MG 1 EACH TABLET PO PRN (13:35)
--- NOTE | 2019-05-16 14:20 | NUR ---
ms newborn photographer instructions given and understood, patient discharge home w/ prescription, went home w/ son and ,all needs attended.
== END 2019-05-16 15:00 | disposition home or self-care (01) | DRG 469 ==
LOC: ER 01:38 → MED 04:49
PROVIDERS: ADMIT Nurse Practitioner Acute Care
PROC: 0SRB0JZ Replacement of Left Hip Joint with Synthetic Substitute, Open Approach (ICD-10-PCS; principal; 2019-05-10)
DX: S72.002A Fracture of unspecified part of neck of left femur, initial encounter for closed fracture (principal); N17.0 Acute kidney failure with tubular necrosis; J98.11 Atelectasis; D68.59 Other primary thrombophilia; I10 Essential (primary) hypertension; I71.4 Abdominal aortic aneurysm, without rupture; D72.829 Elevated white blood cell count, unspecified; E66.9 Obesity, unspecified; E78.5 Hyperlipidemia, unspecified; E83.42 Hypomagnesemia; G47.00 Insomnia, unspecified; K42.9 Umbilical hernia without obstruction or gangrene; K40.20 Bilateral inguinal hernia, without obstruction or gangrene, not specified as recurrent; E02 Subclinical iodine-deficiency hypothyroidism; W18.30XA Fall on same level, unspecified, initial encounter; Y93.9 Activity, unspecified; Y92.009 Unspecified place in unspecified non-institutional (private) residence as the place of occurrence of the external cause; Z68.32 Body mass index [BMI] 32.0-32.9, adult; Z71.3 Dietary counseling and surveillance
CPT/HCPCS: 36415; 70450-TC; 71045-TC; 72170-TC; 73020; 80048-TC; 80053-TC; 80061-TC; 80076-TC; 81000-TC; 82962-TC; 83735-TC; 84100-TC; 84439-TC; 84443-TC; 84484-TC; 85025-TC; 85610-TC; 85730-TC; 86850-TC; 87081-TC; 88305-TC; 88311-TC; 93307-TC; 97110-TC; 97112-TC; 97116-TC; 97530-TC; A6253; C9113; G0378; J0690; J1170; J1650; J2250; J2270; J2405; J2704; J2710; J2765; J3010; J3475; J3490; J7030; J7050; J7060; Q9967